=== PATIENT | male | born 1970 | race Caucasian/White ===

== ENCOUNTER 2022-04-22 18:28 | Emergency (ER) | payer OTHER ==
[2022-04-22] MEDS ORDERED: BEBTELOVIMAB (EUA) 175 MG/2 ML VIAL IV ONE (20:15)
--- NOTE | 2022-04-22 21:01 | ED ---
General Adult HPI - General Chief complaint: Upper Respiratory Infection Stated complaint: Fever Time Seen by Provider: 04/22/22 19:13 Source: patient, RN notes reviewed, old records reviewed Mode of arrival: ambulatory Limitations: no limitations - History of Present Illness Initial comments: Patient is a 51-year-old male who presents emergency department concern for Covid 19 infection. Testing was obtained prior to my evaluation of the patient. It was positive. States he has had symptoms for 2-3 days. Primarily runny nose, fatigue, headaches. No shortness of breath. No chest pain. No nausea or vomiting. No diarrhea. Does have a sick contact. Denies any fevers. Presents for further evaluation of this time. Would like monoclonal antibodies. Was not vaccinated. - Related Data Home Medications Medication Instructions Recorded Confirmed Aspirin 81 mg PO DAILY 09/21/14 09/21/14 Atorvastatin Calcium [Lipitor] 20 mg PO DAILY 09/21/14 09/21/14 Dextroamphetamine/Amphetamine 20 mg PO DAILY PRN 09/21/14 09/21/14 [Adderall] Metoprolol Tartrate [Lopressor] 50 mg PO QAM 09/21/14 09/21/14 Venlafaxine HCl ER [Effexor Xr] 150 mg PO DAILY 09/21/14 09/21/14 carBAMazepine [TEGretol] 200 mg PO Q12H 09/21/14 09/21/14 oxyCODONE HCL/ACETAMINOPHEN 1 each PO QID PRN 09/21/14 09/21/14 [Percocet 10-325 mg] Omeprazole [PriLOSEC] 20 mg PO AC-BRKFST 10/01/14 10/01/14 Previous Rx's Medication Instructions Recorded HYDROcodone/APAP 7.5-325MG [[place] 1 each PO Q4H PRN #60 tab 10/01/14 7.5] HYDROcodone/APAP 7.5-325MG [[place] 1 each PO Q4H PRN #60 tab 10/01/14 7.5] Allergies Allergy/AdvReac Type Severity Reaction Status Date / Time No Known Allergies Allergy Verified 04/22/22 18:51 Review of Systems ROS Statement: Those systems with pertinent positive or pertinent negative responses have been documented in the HPI. Review of Systems: CONST: Denies fever EYES: Denies blurry vision ENT: Endorses nasal congestion C/V: Denies Chest pain RESP: Denies shortness of breath GI: Denies abdominal pain : Denies dysuria SKIN: Denies rash. MSK: Denies joint pain. NEURO: Denies headache ROS Other: All systems not noted in ROS Statement are negative. Past Medical History Past Medical History: GERD/Reflux, Hyperlipidemia, Hypertension, Myocardial Infarction ([place]) Last Myocardial Infarction Date:: unknown History of Any Multi-Drug Resistant Organisms: None Reported Past Surgical History: Heart Catheterization, Hernia Repair, Orthopedic Surgery, Tonsillectomy Additional Past Surgical History / Comment(s): rt shoulder surgery, index finger right hand re-attached Past Anesthesia/Blood Transfusion Reactions: No Reported Reaction Past Psychological History: Anxiety, Depression, Schizoaffective Disorder Smoking Status: Current every day smoker Past Alcohol Use History: None Reported Past Drug Use History: None Reported - Past Family History Mother Family Medical History: Cancer General Exam - General Exam Comments Initial Comments: General: Appears in no acute distress. HEAD: Normal with no signs of head trauma. EYES: EOMI ENT: Hearing grossly intact, normal oropharynx. RESPIRATORY: Clear breath sounds bilaterally. No wheezes, rales, or rhonchi. No hypoxia. No increased work of breathing. C/V: Regular rate and rhythm. S1 and S2 auscultated. Peripheral pulses 2+ and intact throughout. ABD: Abdomen is soft, nondistended. EXT: No obvious deformity SKIN: No rashes or lesions observed on exposed skin. NEURO: Alert and oriented x 4. Limitations: no limitations Course Vital Signs 04/22/22 04/22/22 18:49 21:30 Temperature 98.4 F 97.8 F Pulse Rate 84 82 Respiratory 16 18 Rate Blood Pressure 167/92 153/81 O2 Sat by Pulse 96 97 Oximetry Medical Decision Making - Medical Decision Making Based on patient's presentation and physical exam, does appear he is experiencing acute COVID-19 infection. Test is positive. No respiratory distress. No Hypoxia. Patient consented to monoclonal antibody therapy. Will be discharged home after a period of observation. Discussed quarantine. Discussed obtaining a pulse oximeter. He was in agreement this plan. Vital signs within normal limits. I instructed the patient to follow up with their PCP in the next 1-3 days. I explained that the patient should return to the emergency department if they experience any worsening symptoms. Strict return precautions were discussed with the patient. The patient expressed understanding of these instructions. I answered all questions that the patient had. The patient was discharged home in good condition with their prescriptions and follow up information. - Lab Data Lab Results 04/22/22 Range/Units 18:53 Coronavirus (PCR) Detected A (Not Detectd) Disposition Clinical Impression: COVID-19 Disposition: HOME SELF-CARE Condition: Good Instructions (If sedation given, give patient instructions): Coronavirus Disease 2019 (COVID-19) Is patient prescribed a controlled substance at d/c from ED?: No Referrals: April Clemens MD [Primary Care Provider] - 1-2 days Time of Disposition: 21:00
[2022-04-22 21:43] VITALS: BP 153/81; PULSE 82; RESP 18; TEMP 97.8
== END 2022-04-22 21:30 | disposition home or self-care (01) ==
LOC: SUPCPDRO 18:28 → EC 18:28
DX: U07.1 COVID-19 (principal); K21.9 Gastro-esophageal reflux disease without esophagitis; E78.5 Hyperlipidemia, unspecified; I10 Essential (primary) hypertension; I21.9 Acute myocardial infarction, unspecified; F41.9 Anxiety disorder, unspecified; F32.A Depression, unspecified; Z79.82 Long term (current) use of aspirin; Z79.899 Other long term (current) drug therapy
CPT/HCPCS: 87635; 99284; Q0222